=== PATIENT | female | born 1985 | race Caucasian/White ===

== ENCOUNTER 2018-08-08 15:09 | Emergency (ER) | payer OTHER ==
[2018-08-08 15:13] VITALS: BP 127/56; PULSE 84; TEMP 98.2; BMI 32.3
--- NOTE | 2018-08-08 15:54 | PDOC ---
History of Present Illness - General Chief Complaint: Respiratory Stated Complaint: FLU SYMPTOMS Time Seen by Provider: 08/08/18 15:37 History Source: Patient, [employer]iance Coordinator Used (#[id number]) Exam Limitations: Clinical Condition - History of Present Illness Initial Comments: 08/08/18 17:11 Patient with no sig PMhx present with complains of 1 month h/o persistent cough with yellow sputum, nasal congestion, runny nose and intermittent chest tightness with tactile fevers. Denies sore throat, N/V, malaise, abd pains. Denies any other symptoms Timing/Duration: other (1 month) Past History - Past Medical History Allergies/Adverse Reactions: Allergies Allergy/AdvReac Type Severity Reaction Status Date / Time No Known Allergies Allergy Verified 08/08/18 15:13 Home Medications: Ambulatory Orders Benzonatate [Tessalon Pearls -] 100 mg PO TID PRN #21 capsule 08/08/18 Ipratropium [place] 2 spray NS BID PRN #1 spray 08/08/18 Loratadine 10 mg PO DAILY #10 capsule 08/08/18 Methylprednisolone [Medrol Dose Christiano] 4 mg PO ASDIR #21 tablet 08/08/18 COPD: No - Suicide/Smoking/Psychosocial Hx Smoking History: Never smoked Review of Systems - Review of Systems Able to Perform ROS?: Yes Is the patient limited Czech proficient: No Constitutional: Yes: Chills, Fever (tactile fever) HEENTM: Yes: Symptoms Reported, See HPI, Nose Congestion. No: Eye Pain, Blurred Vision, Tearing, Recent change in vision, Double Vision, Cataracts, Ear Pain, Ocular Prothesis, Ear Discharge, Nose Pain, Tinnitus, Nose Bleeding, Hearing Loss, Throat Pain, Throat Swelling, Mouth Pain, Dental Problems, Difficulty Swallowing, Mouth Swelling, Other Respiratory: Yes: Symptoms reported, See HPI, Cough. No: Orthopnea, Shortness of Breath, SOB with Exertion, SOB at Rest, Stridor, Wheezing, Productive cough, Hemoptysis, Other Cardiac (ROS): No: Symptoms Reported, See HPI, Chest Pain, Edema, Irregular Heart Rate, Lightheadedness, Palpitations, Syncope, Chest Tightness, Other ABD/GI: No: Constipated, Diarrhea, Nausea, Vomiting All Other Systems: Reviewed and Negative *Physical Exam - Vital Signs Last Vital Signs Temp Pulse Resp BP Pulse Ox 98.2 F 84 18 127/56 L 99 08/08/18 15:10 08/08/18 15:10 08/08/18 15:10 08/08/18 15:10 08/08/18 15:10 - Physical Exam General Appearance: Yes: Nourished, Appropriately Dressed. No: Apparent Distress HEENT: positive: EOMI, ROCIO, Normal ENT Inspection, Normal Voice, TMs Normal, Pharynx Normal. negative: Symmetrical Neck: positive: Supple Respiratory/Chest: positive: Lungs Clear, Normal Breath Sounds. negative: Chest Tender, Respiratory Distress, Accessory Muscle Use Cardiovascular: positive: Regular Rhythm, Regular Rate, S1, S2 Gastrointestinal/Abdominal: positive: Flat, Soft. negative: Tender, Organomegaly Musculoskeletal: positive: Normal Inspection Extremity: positive: Normal Capillary Refill, Normal Inspection Integumentary: positive: Normal Color Neurologic: positive: Fully Oriented, Alert Moderate Sedation - Procedure Monitoring Vital Signs: Procedure Monitoring Vital Signs Temperature 98.2 F 08/08/18 15:10 Pulse Rate 84 08/08/18 15:10 Respiratory Rate 18 08/08/18 15:10 Blood Pressure 127/56 L 08/08/18 15:10 O2 Sat by Pulse Oximetry (%) 99 08/08/18 15:10 Medical Decision Making - Medical Decision Making 08/08/18 17:13 Patient with no sig PMhx present with complains of 1 month h/o persistent cough with yellow sputum, nasal congestion, runny nose and intermittent chest tightness with tactile fevers. Denies sore throat, N/V, malaise, abd pains. Denies any other symptoms Clinical exam unremarkable except nasal congestion. lungs CTAB. normal cardio exam. Chest x-rays shows no acute infiltrate. Patient stable for discharge for outpatient treatment for URI with medrol pack, tessalon perles for cough, anti- histamine and nasal spray for congestion *DC/Admit/Observation/Transfer Diagnosis at time of Disposition: Cough URI (upper respiratory infection) Qualifiers: URI type: unspecified URI Qualified Code(s): J06.9 - Acute upper respiratory infection, unspecified - Discharge Dispostion Disposition: HOME Condition at time of disposition: Stable Decision to Admit order: No - Prescriptions Prescriptions: Benzonatate [Tessalon Pearls -] 100 mg PO TID PRN #21 capsule PRN Reason: Cough Ipratropium [place] 2 spray NS BID PRN #1 spray PRN Reason: nasal congestion Loratadine 10 mg PO DAILY #10 capsule Methylprednisolone [Medrol Dose Christiano] 4 mg PO ASDIR #21 tablet - Referrals Referrals: Jatin Dobson MD [Staff Physician] - - Patient Instructions Printed Discharge Instructions: DI for Acute Bronchitis Additional Instructions: Your chest x-ray shows no pneumonia. Take medications as prescribed. increase fluid intake. follow-up with PCP - Post Discharge Activity
== END 2018-08-08 17:23 | disposition home or self-care (01) ==
LOC: JERFT 15:09
DX: J06.9 Acute upper respiratory infection, unspecified (principal)
CPT/HCPCS: 71046-TC-FY; 84703; 99281-25

== ENCOUNTER 2018-10-09 16:48 | Emergency (ER) | payer OTHER ==
[2018-10-09 17:02] VITALS: TEMP 98.2; BMI 29.0
--- NOTE | 2018-10-09 17:37 | PDOC ---
History of Present Illness - General Chief Complaint: Nausea/Vomiting Stated Complaint: DIZZINESS/ DIARRHEA/VOMITING Time Seen by Provider: 10/09/18 17:16 History Source: Patient Exam Limitations: No Limitations - History of Present Illness Initial Comments: 33 yo F w no reported pmh presents with 3 days of nausea and vomting - NBNB. She says that today she has only experienced one episode of vomiting, but 3-4 yesterday. She states the day before she had too many vomiting episodes to count. She has also had 2/3 episodes of non-bloody - watery diarrhea yesterday. She endorses having a headache as well. She is sexually active with one male partner and she has an IUD in place which was placed 2 years prior. She also endorses intermittent leandra-umbilical abdominal pain which does not radiate in any direction. Denies dysuria, frequency, urgency. Denies recent travel. Denies rlq pain and denies back pain. Denies fevers, chills, or sweats. Does not take any medications. PCP: None PSH: 2 C-sections (6 and 2 years ago), teratoma removed. Allergies: NKA, NKDA Social Hx: Denies smoking, drinking, or other substance usage. Past History - Past Medical History Allergies/Adverse Reactions: Allergies Allergy/AdvReac Type Severity Reaction Status Date / Time No Known Allergies Allergy Verified 08/08/18 15:13 Home Medications: Ambulatory Orders Benzonatate [Tessalon Pearls -] 100 mg PO TID PRN #21 capsule 08/08/18 Ipratropium [place] 2 spray NS BID PRN #1 spray 08/08/18 Loratadine 10 mg PO DAILY #10 capsule 08/08/18 Methylprednisolone [Medrol Dose Christiano] 4 mg PO ASDIR #21 tablet 08/08/18 COPD: No - Immunization History Immunization Up to Date: Yes - Suicide/Smoking/Psychosocial Hx Smoking History: Current every day smoker Information on smoking cessation initiated: No Hx Alcohol Use: No Drug/Substance Use Hx: No Review of Systems - Review of Systems Able to Perform ROS?: Yes Comments:: CONSTITUTIONAL: Present: Chills Absent: fever, no fatigue EYES: Absent: visual changes ENT: Absent: ear pain, no sore throat CARDIOVASCULAR: Absent: chest pain, no palpitations RESPIRATORY: Absent: cough, no SOB GI: Present: Abdominal pain, nausea, vomiting, diarrhea Absent: no constipation GENITOURINARY: Absent: dysuria, no frequency, no hematuria MUSKULOSKELETAL: Absent: back pain, no arthralgia, no myalgia SKIN: Absent: rash NEURO: Present: headache *Physical Exam - Vital Signs Last Vital Signs Temp Pulse Resp BP Pulse Ox 98.2 F 60 17 102/63 99 10/09/18 17:00 10/09/18 17:00 10/09/18 17:00 10/09/18 17:00 10/09/18 17:00 - Physical Exam Comments: GENERAL: Well-appearing, well-nourished. No apparent distress. HEENT: Normocephalic, atraumatic. PERRL, EOM intact. CARDIOVASCULAR: Normal S1, S2. Regular rate and rhythm. PULMONARY: No evidence of respiratory distress. Lungs clear to auscultation bilaterally. No wheezing, rales or rhonchi. ABDOMEN: Mild TTP in the leandra-umbilical region. Soft, non-distended. EXTREMITIES: Normal ROM in all four extremities. No gross deformities. SKIN: Warm, dry. No rash NEUROLOGICAL: No focal neurological deficits. ED Treatment Course - LABORATORY CBC & Chemistry Diagram: 10/09/18 17:53 10/09/18 17:53 Medical Decision Making - Medical Decision Making 33 yo F w no reported pmh presents with 3 days of nausea and vomting - NBNB. She says that today she has only experienced one episode of vomiting, but 3-4 yesterday. She states the day before she had too many vomiting episodes to count. She has also had 2/3 episodes of non-bloody - watery diarrhea yesterday. She endorses having a headache as well. She is sexually active with one male partner and she has an IUD in place which was placed 2 years prior. She also endorses intermittent leandra-umbilical abdominal pain which does not radiate in any direction. VS: WNL DDx IBNLT: gastroenteritis/food poisoning, , electrolyte/metabolic disturbance, SBO, appendicitis Plan: Labs, Urine, EKG, GI cocktail, zofran, IV hydration, re-assess. - Patient is very well appearing, walking around the ED without difficulty and appears well enough to leave the ED after workup. Patient Signed out to Dr. Rosas for further care and disposition *DC/Admit/Observation/Transfer Diagnosis at time of Disposition: Abdominal pain - Referrals - Patient Instructions - Post Discharge Activity
[2018-10-09] MEDS ORDERED: ACETAMINOPHEN 1000 MG/100 ML VIAL (NON FORMULARY) IVPB ONE (17:39)
[2018-10-09] MEDS ORDERED: FAMOTIDINE 20 MG/50 ML IVPB 20 MG/50 ML MG IVPB ONE ×2 (17:39→17:55)
[2018-10-09] MEDS ORDERED: ONDANSETRON 4 MG/2 ML VIAL IVPUSH ONE (17:39)
[2018-10-09] MEDS ORDERED: SODIUM CHLORIDE 0.9% 500 ML INFUS.BAG IV ONE (17:39)
[2018-10-09] MEDS ORDERED: MAG HYDROX/AL HYDROX/SIMETH -MYLANTA- ORAL SUSPENSION PO ONE (17:41)
[2018-10-09] MEDS ORDERED: ONDANSETRON 4 MG/2 ML VIAL ONE (17:54)
[2018-10-09] MEDS ORDERED: MAG HYDROX/AL HYDROX/SIMETH 30 ML UNIT-DOSE CUP ONE (17:54)
[2018-10-09] MEDS ORDERED: ACETAMINOPHEN INJECTION 100 ML IVPB ONE (17:54)
[2018-10-09 18:05] LABS: BASO % 0.3 % (0-2.0); EOS % 2.2 % (0-4.5); HEMATOCRIT 34.5 % (32.4-45.2); HEMOGLOBIN 10.9 GM/dL (10.7-15.3); LYMPH % 26.3 % (8-40); MCHC 31.6 g/dl (32.0-36.0); MEAN CELL VOLUME 78.9 fl (80-96); MEAN PLT VOLUME 7.9 fl (7.5-11.1); NEUT % 59.2 % (42.8-82.8); PLATELET COUNT 294 K/MM3 (134-434); RBC 4.37 M/mm3 (3.60-5.2); RDW 15.9 % (11.6-15.6); WHITE BLOOD COUNT 5.5 K/mm3 (4.0-10.0)
[2018-10-09 18:26] LABS: ALBUMIN 3.8 g/dl (3.4-5.0); ALK PHOS 64 U/L (45-117); BILIRUBIN,TOTAL 0.1 mg/dL (0.2-1); BLOOD UREA NITROGEN 15 mg/dL (7-18); CALCIUM 9.1 mg/dL (8.5-10.1); CO2 29 mmol/L (21-32); CREATININE 0.5 mg/dL (0.55-1.3); GLUCOSE,RANDOM 83 mg/dL (74-106); LIPASE 177 U/L (73-393); SGOT/AST 11 U/L (15-37); SGPT/ALT 16 U/L (13-61); TOT PROT 7.4 g/dl (6.4-8.2)
--- NOTE | 2018-10-09 18:48 | PDOC ---
Attending Attestation - Resident Resident Name: Kobe Shore - ED Attending Attestation I have performed the following: I have examined & evaluated the patient, The case was reviewed & discussed with the resident, I agree w/resident's findings & plan, Exceptions are as noted <Nicki Johnson - Last Filed: 10/09/18 18:48> - HPI HPI: The patient is a 33 year old female, with no significant PMH, who presents to the emergency department today complaining of nausea, vomit, and diarrhea for 3 days. Patient notes that 3 days ago, she had multiple episodes on NBNB vomit, too many of which she could keep count. Yesterday, patient had four episodes of NBNB vomit and 5 episodes of watery diarrhea (denies blood in stool). She endorses only one episode of NBNB vomit today. Patient reports associated headache and pain around her umbilicus. She denies sick contacts at home. The patient denies chest pain, shortness of breath, headache and dizziness. Denies fever, chills, nausea, vomit, diarrhea and constipation. Denies dysuria, frequency, urgency and hematuria. Denies raw fish or raw meat consumption. Allergies: NKA Past surgical history: 2 C-sections, and teratoma resection Social history: None reported PCP: Does not have one 10/09/18 18:49 - Physicial Exam PE: GENERAL: The patient is in no acute distress. HEAD: Normal with no signs of trauma. EYES: PERRLA, EOMI, sclera anicteric, conjunctiva clear. ENT: Ears normal, nares patent, oropharynx clear without exudates. Moist mucous membranes. NECK: Normal range of motion, supple without lymphadenopathy, JVD, or masses. LUNGS: Breath sounds equal, clear to auscultation bilaterally. No wheezes, and no crackles. HEART:Regular rate and rhythm, normal S1 and S2 without murmur, rub or gallop. ABDOMEN: +Periumbilical tenderness to palpation. Soft, normoactive bowel sounds. No guarding, no rebound. No masses palpable. EXTREMITIES: Normal range of motion, no edema. No clubbing or cyanosis. No erythema, or tenderness. NEUROLOGICAL: Cranial nerves II through XII grossly intact. Normal speech. No focal neurological deficits. MUSCULOSKELETAL: Back non-tender to palpation, no CVA tenderness SKIN: Warm, Dry, normal turgor, no rashes or lesions noted. 10/09/18 18:49 - Medical Decision Making EXAM: Abdomen/T/Pelvis CT with contrast Impression: No evidence of GI or tract obstruction or inflammatory change. Terminal ileum and appendix within normal limits. IUD present within the uterine fundus. 1.6 cm cyst left ovary. Right ovary not visualized separate from adjacent bowel loops. Reported by: Brennan Gregory MD 10/09/2018 21:48 Documentation prepared by SHANTELL Rouse, acting as medical communication specialist for Nicki Johnson MD. 10/09/18 21:52 <Zulma Wells - Last Filed: 10/09/18 21:53>
[2018-10-09 19:07] LABS: EPI CELLS 2.1 /HPF (0-5); URINE APPEARANCE CLEAR; URINE BACTERIA 8.5 /hpf (NEGATIVE); URINE BILIRUBIN NEGATIVE (NEGATIVE); URINE CASTS 1 /hpf (0-8); URINE COLOR YELLOW; URINE GLUCOSE (UA) NEGATIVE (NEGATIVE); URINE KETONE NEGATIVE (NEGATIVE); URINE LEUK ESTERASE TRACE (NEGATIVE); URINE NITRITE NEGATIVE (NEGATIVE); URINE PROTEIN NEGATIVE (NEGATIVE); URINE RBC 3 /hpf (0-4); URINE WBC 3 /hpf (0-5)
[2018-10-09 19:24] LABS: ANION GAP 7 MMOL/L (8-16); CHLORIDE 106 mmol/L (98-107); POTASSIUM 3.7 mmol/L (3.5-5.1); SODIUM 142 mmol/L (136-145)
--- NOTE | 2018-10-09 19:38 | PDOC ---
*Physical Exam - Vital Signs Last Vital Signs Temp Pulse Resp BP Pulse Ox 98.2 F 60 17 102/63 99 10/09/18 17:00 10/09/18 17:00 10/09/18 17:00 10/09/18 17:00 10/09/18 17:00 ED Treatment Course - LABORATORY CBC & Chemistry Diagram: 10/09/18 17:53 10/09/18 17:53 - ADDITIONAL ORDERS Additional order review: Laboratory Results 10/09/18 10/09/18 10/09/18 18:55 18:55 17:53 Sodium 142 Potassium 3.7 Chloride 106 Carbon Dioxide 29 Anion Gap 7 L BUN 15 Creatinine 0.5 L Creat Clearance w eGFR 142.98 Random Glucose 83 Calcium 9.1 Total Bilirubin 0.1 L AST 11 L ALT 16 Alkaline Phosphatase 64 Total Protein 7.4 Albumin 3.8 Lipase 177 Urine Color Yellow Urine Appearance Clear Urine pH 6.0 Ur Specific [place] 1.026 Urine Protein Negative Urine Glucose (UA) Negative Urine Ketones Negative Urine Blood Negative Urine Nitrite Negative Urine Bilirubin Negative Urine Urobilinogen 1.0 Ur Leukocyte Esterase Trace Urine WBC (Auto) 3 Urine RBC (Auto) 3 Urine Casts (Auto) 1 U Epithel Cells (Auto) 2.1 Urine Bacteria (Auto) 8.5 Urine HCG, Qual Negative 10/09/18 17:53 RBC 4.37 MCV 78.9 L MCHC 31.6 L RDW 15.9 H MPV 7.9 Neutrophils % 59.2 Lymphocytes % 26.3 Monocytes % 12.0 H Eosinophils % 2.2 Basophils % 0.3 - Medications Given in the ED: ED Medications Discontinued Medications Generic Name Dose Route Start Last Admin Trade Name Boni PRN Reason Stop Dose Admin Acetaminophen 1,000 mg 10/09/18 17:39 10/09/18 18:13 Ofirmev Injection - IVPB 10/09/18 17:40 1,000 mg ONCE ONE Administration Al Hydroxide/Mg Hydroxide 30 ml 10/09/18 17:41 10/09/18 18:13 Mylanta Suspension - PO 10/09/18 17:42 30 ml ONCE ONE Administration Famotidine/Sodium Chloride 20 mg in 50 mls @ 100 mls/hr 10/09/18 17:39 18:13 Pepcid 20 Mg Premixed Ivpb - IVPB 10/09/18 18:08 100 mls/hr ONCE ONE Administration Ondansetron HCl 4 mg 10/09/18 17:39 10/09/18 18:13 Zofran Injection IVPUSH 10/09/18 17:40 4 mg ONCE ONE Administration Sodium Chloride 1,000 ml 10/09/18 17:39 10/09/18 18:13 Normal Saline - IV 10/09/18 17:40 1,000 ml ONCE ONE Administration Medical Decision Making - Medical Decision Making 10/09/18 19:37 Pt came with abd pain. Labs normal; she was treated with IV tylenol. Still with periumilical pain. We will scan her because the periumbilical pain is still present. No lower quadrant pain and no rebound and guarding. Pt has significant central abdominal pain. No periumbilical hernia appreciated. Pt has a mis abd scar caudal to the umbilicus. Hx of c section and teratoma removal. 10/09/18 21:54 Patient Name: SHONDA DURAN THIS IS A PRELIMINARY REPORT FROM [facility] DATE OF SERVICE: 2018-10-09 20:21:55 IMAGES: [id number] EXAM: ABDOMEN \T\ PELVIS CT WITH CONTR History: 33-year-old female with abdominal pain Comparison: None Procedure: CT scan abdomen and pelvis, dated October 09, 2018 . Axial images obtained followed by coronal and sagittal reconstructions. Intravenous contrast utilized, 100 mL Omnipaque . Findings: The liver, spleen, pancreas, adrenal glands and kidneys unremarkable. Exophytic cyst posterior cortex upper pole right kidney. Gallbladder gallbladder fossa normal in appearance. No ureteral or bladder abnormalities noted. Rectum and perirectal space unremarkable. Terminal ileum and appendix within normal limits. No large or small bowel inflammatory changes evident. The aorta/branch vessel/IVC unremarkable. Small umbilical hernia, fat- containing only. Uterus is anteverted in position. 1.6 cm cyst left ovary. Right ovary not clearly visualized from adjacent bowel loops. IUD noted within the uterine fundus. 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 No erosive changes to the sacral iliac joints identified. Impression: 1. No evidence of GI or tract obstruction or inflammatory change. Terminal ileum and appendix within normal limits. 2. IUD present within the uterine fundus. 1.6 cm cyst left ovary. Right ovary not visualized separate from adjacent bowel loops. 10/09/18 22:48 Pt has abd pain, NOS. Likely secondary to adhesions and gas pain. Pt reassured stable for discharge. *DC/Admit/Observation/Transfer Diagnosis at time of Disposition: Renal cyst, Ovarian cyst Abdominal pain Qualifiers: Abdominal location: unspecified location Qualified Code(s): R10.9 - Unspecified abdominal pain - Discharge Dispostion Disposition: HOME Condition at time of disposition: Stable - Prescriptions Prescriptions: Metoclopramide HCl [Reglan -] 10 mg PO DAILY #7 tablet - Referrals Referrals: [facility] [place] [facility] [place] [Provider Group] - Patient Instructions Additional Instructions: You were seen in the ER for abdominal pain, nausea, and vomiting. We did lab work on your blood and urine and found no abnormalities. We took an electrocardiogram which showed no concerning findings on your heart activity. We also did some imaging studies and we did not see any new abnormalities that could explain your symptoms, but we found an incidental right kidney cyst and a small ovarian cyst. (Please follow up with your regular doctor regarding these findings, which are not emergencies). After our assessment, we do not believe you are having a medical emergency at this time, and we believe you are safe to go home. Please take Reglan for the headache and abdominal discomfort (we are sending a prescription). Please also purchase and take omeprazole 20 mg once a day, from the pharmacy. We are giving you referral information for a primary care doctor in case you need a new one. Call their clinic [facility], tell them you were seen in the ER, and tell them you need an appointment. Please come back to the ER at any time, 24 hours a day, for any new or worsening symptoms, like worsened abdominal pain, fever, inability to have a bowel movement or pass gas, chest pain, palpitations, or other symptoms. If you are having severe or life threatening symptoms, or symptoms that make it unsafe to drive or have someone drive you, please call 911. - Post Discharge Activity
--- NOTE | 2018-10-09 20:47 | PDOC ---
*Physical Exam - Vital Signs Last Vital Signs Temp Pulse Resp BP Pulse Ox 98.2 F 60 20 105/69 100 10/09/18 17:00 10/09/18 19:57 10/09/18 19:57 10/09/18 19:57 10/09/18 19:57 - Physical Exam Comments: 10/09/18 19:15 Patient's care was endorsed to me by Dr. Shore at the end of his shift. Patient is a 33 YOF with h/o abdominal surgery, who p/w nausea, NBNB vomiting, and periumbilical>epigastric abdominal pain x2 days worsening now. Was given GI medications and Tylenol, still has some abdominal pain, no longer nauseated/ vomiting. Awaiting remaining labs currently. Will re-assess and decide whether or not to CT. ED Treatment Course - LABORATORY CBC & Chemistry Diagram: 10/09/18 17:53 10/09/18 17:53 - ADDITIONAL ORDERS Additional order review: Laboratory Results 10/09/18 10/09/18 10/09/18 18:55 18:55 17:53 Sodium 142 Potassium 3.7 Chloride 106 Carbon Dioxide 29 Anion Gap 7 L BUN 15 Creatinine 0.5 L Creat Clearance w eGFR 142.98 Random Glucose 83 Calcium 9.1 Total Bilirubin 0.1 L AST 11 L ALT 16 Alkaline Phosphatase 64 Total Protein 7.4 Albumin 3.8 Lipase 177 Urine Color Yellow Urine Appearance Clear Urine pH 6.0 Ur Specific [place] 1.026 Urine Protein Negative Urine Glucose (UA) Negative Urine Ketones Negative Urine Blood Negative Urine Nitrite Negative Urine Bilirubin Negative Urine Urobilinogen 1.0 Ur Leukocyte Esterase Trace Urine WBC (Auto) 3 Urine RBC (Auto) 3 Urine Casts (Auto) 1 U Epithel Cells (Auto) 2.1 Urine Bacteria (Auto) 8.5 Urine HCG, Qual Negative 10/09/18 17:53 RBC 4.37 MCV 78.9 L MCHC 31.6 L RDW 15.9 H MPV 7.9 Neutrophils % 59.2 Lymphocytes % 26.3 Monocytes % 12.0 H Eosinophils % 2.2 Basophils % 0.3 - RADIOLOGY Radiology Studies Ordered: Category Date Time Status ABDOMEN & PELVIS CT WITH CONTR [CT] Stat CT Scan 10/09/18 19:20 Ordered - Medications Given in the ED: ED Medications Discontinued Medications Generic Name Dose Route Start Last Admin Trade Name Freq PRN Reason Stop Dose Admin Acetaminophen 1,000 mg 10/09/18 17:39 10/09/18 18:13 Ofirmev Injection - IVPB 10/09/18 17:40 1,000 mg ONCE ONE Administration Al Hydroxide/Mg Hydroxide 30 ml 10/09/18 17:41 10/09/18 18:13 Mylanta Suspension - PO 10/09/18 17:42 30 ml ONCE ONE Administration Famotidine/Sodium Chloride 20 mg in 50 mls @ 100 mls/hr 10/09/18 17:39 18:13 Pepcid 20 Mg Premixed Ivpb - IVPB 10/09/18 18:08 100 mls/hr ONCE ONE Administration Ondansetron HCl 4 mg 10/09/18 17:39 10/09/18 18:13 Zofran Injection IVPUSH 10/09/18 17:40 4 mg ONCE ONE Administration Sodium Chloride 1,000 ml 10/09/18 17:39 10/09/18 18:13 Normal Saline - IV 10/09/18 17:40 1,000 ml ONCE ONE Administration Medical Decision Making - Medical Decision Making 10/09/18 20:00 The patient remained tender to the periumbilical area>epigastrium, moderate, after medications. After shared decision making the decision was made to order the CT A/P with IV contrast. Order placed, patient wheeled to CT scan, having scan now. *DC/Admit/Observation/Transfer Diagnosis at time of Disposition: Renal cyst Abdominal pain Qualifiers: Abdominal location: unspecified location Qualified Code(s): R10.9 - Unspecified abdominal pain Ovarian cyst Qualifiers: Laterality: unspecified laterality Qualified Code(s): N83.209 - Unspecified ovarian cyst, unspecified side - Discharge Dispostion Disposition: HOME Condition at time of disposition: Stable Decision to Admit order: No - Prescriptions Prescriptions: Metoclopramide HCl [Reglan -] 10 mg PO DAILY #7 tablet - Referrals Referrals: [facility] [place] [facility] [place] [Provider Group] - Patient Instructions Additional Instructions: You were seen in the ER for abdominal pain, nausea, and vomiting. We did lab work on your blood and urine and found no abnormalities. We took an electrocardiogram which showed no concerning findings on your heart activity. We also did some imaging studies and we did not see any new abnormalities that could explain your symptoms, but we found an incidental right kidney cyst and a small ovarian cyst. (Please follow up with your regular doctor regarding these findings, which are not emergencies). After our assessment, we do not believe you are having a medical emergency at this time, and we believe you are safe to go home. Please take Reglan for the headache and abdominal discomfort (we are sending a prescription). Please also purchase and take omeprazole 20 mg once a day, from the pharmacy. We are giving you referral information for a primary care doctor in case you need a new one. Call their clinic [facility], tell them you were seen in the ER, and tell them you need an appointment. Please come back to the ER at any time, 24 hours a day, for any new or worsening symptoms, like worsened abdominal pain, fever, inability to have a bowel movement or pass gas, chest pain, palpitations, or other symptoms. If you are having severe or life threatening symptoms, or symptoms that make it unsafe to drive or have someone drive you, please call 911. - Post Discharge Activity
[2018-10-09 22:13] VITALS: BP 105/70; PULSE 58
--- NOTE | 2018-10-10 18:03 | EKG ---
Test Reason : Blood Pressure : / mmHG Vent. Rate : 052 BPM Atrial Rate : 052 BPM P-R Int : 164 ms QRS Dur : 082 ms QT Int : 434 ms P-R-T Axes : 055 075 045 degrees QTc Int : 403 ms SINUS BRADYCARDIA POSSIBLE LEFT ATRIAL ENLARGEMENT BORDERLINE ECG NO PREVIOUS ECGS AVAILABLE Confirmed by SULEMAN ORDAZ, CAMILLE ([id number]) on 10/10/2018 6:03:34 PM Referred By: Confirmed By:CAMILLE SHELL MD
== END 2018-10-09 22:13 | disposition home or self-care (01) ==
LOC: JER 16:48
PROC: 3E033GC Introduction of Other Therapeutic Substance into Peripheral Vein, Percutaneous Approach (ICD-10-PCS; principal; 2018-10-09)
PROC: 3E033NZ Introduction of Analgesics, Hypnotics, Sedatives into Peripheral Vein, Percutaneous Approach (ICD-10-PCS; 2018-10-09)
PROC: 3E033GC Introduction of Other Therapeutic Substance into Peripheral Vein, Percutaneous Approach (ICD-10-PCS; 2018-10-09)
DX: N83.202 Unspecified ovarian cyst, left side (principal); N28.1 Cyst of kidney, acquired; R10.9 Unspecified abdominal pain
CPT/HCPCS: 36415; 74177-TC; 80053; 81003; 83690; 84703; 85025; 87086; 93005; 93010; 96365; 96375; 99283-25; J0131

== ENCOUNTER 2019-08-06 21:26 | Emergency (ER) | payer OTHER ==
[2019-08-06 21:42] VITALS: BP 109/86; PULSE 77; TEMP 98.6; BMI 28.1
--- NOTE | 2019-08-06 22:11 | PDOC ---
History of Present Illness - General Chief Complaint: Chest Pain Stated Complaint: CHEST PAIN Time Seen by Provider: 08/06/19 22:08 History Source: Patient Exam Limitations: No Limitations - History of Present Illness Initial Comments: 08/06/19 22:35 34y previously healthy F presenting w 2mo yellow productive cough, chest pain/ SOB worse w coughing, and 1d subjective fevers, julio frontal headache, poor appetite, lightheadedness. No PCP. Took cough medication yesterday, nothing today. Denies nausea/vomiting, ABD pain, diarrhea, urinary changes. Past History - Past Medical History Allergies/Adverse Reactions: Allergies Allergy/AdvReac Type Severity Reaction Status Date / Time No Known Allergies Allergy Verified 08/08/18 15:13 Home Medications: Ambulatory Orders NK [No Known Home Medication] 08/06/19 COPD: No - Immunization History Immunization Up to Date: Yes - Psycho Social/Smoking Cessation Hx Smoking History: Never smoked Hx Alcohol Use: No Drug/Substance Use Hx: No Review of Systems - Review of Systems Constitutional: Yes: Chills, Fever HEENTM: No: Eye Pain, Nose Pain, Nose Congestion, Throat Pain Respiratory: Yes: Cough, Shortness of Breath Cardiac (ROS): Yes: Chest Pain. No: Palpitations ABD/GI: No: Constipated, Diarrhea, Nausea, Vomiting : No: Burning, Dysuria, Hematuria Musculoskeletal: No: Back Pain, Joint Pain Integumentary: No: Bruising, Flushing Neurological: Yes: Headache. No: Seizure Psychiatric: No: Anxiety, Depression Endocrine: No: Excessive Sweating, Intolerance to Cold, Intolerance to Heat Hematologic/Lymphatic: No: Anemia, Blood Clots *Physical Exam - Vital Signs Last Vital Signs Temp Pulse Resp BP Pulse Ox 98.6 F 77 19 109/86 99 08/06/19 21:39 08/06/19 21:39 08/06/19 21:39 08/06/19 21:39 08/06/19 21:39 - Physical Exam General Appearance: Yes: Nourished, Appropriately Dressed, Mild Distress HEENT: positive: EOMI, ROCIO, Normal Voice, Hearing Grossly Normal. negative: Scleral Icterus (R), Scleral Icterus (L) Respiratory/Chest: positive: Chest Tender (midsternal), Lungs Clear, Normal Breath Sounds, Decreased Breath Sounds. negative: Respiratory Distress, Crackles, Rales, Rhonchi, Stridor, Wheezing Cardiovascular: positive: Regular Rhythm, Regular Rate, S1, S2. negative: Murmur Gastrointestinal/Abdominal: positive: Normal Bowel Sounds, Flat, Soft. negative : Tender, Organomegaly Integumentary: positive: Normal Color. negative: Dry, Bruising Neurologic: positive: records management specialist II-XII NML intact, Fully Oriented, Alert, Normal Mood/ Affect, Normal Response, Motor Strength 5/5, Responsive. negative: Sensory Deficit, Confused, Disoriented Heart Score/ECG Review - History History: Slightly suspicious - Electrocardiogram EKG: Normal - Age Age: </= 45 - Risk Factors Based on the list above the patient has:: No risk factors known - Troponin Troponin: </= normal limit - Score Heart Score - Total: 0 ED Treatment Course - LABORATORY CBC & Chemistry Diagram: 08/06/19 22:53 08/06/19 22:53 - ADDITIONAL ORDERS Additional order review: Laboratory Results 08/06/19 22:53 Serum , Qual Negative 08/06/19 22:53 RBC 4.63 MCV 78.8 L MCHC 32.2 RDW 15.0 MPV 8.0 Neutrophils % 60.5 Lymphocytes % 23.7 Monocytes % 14.4 H Eosinophils % 0.8 Basophils % 0.6 - RADIOLOGY Radiology Studies Ordered: Category Date Time Status CHEST PA & LAT [RAD] Stat Radiology 08/06/19 22:32 Taken - Medications Given in the ED: ED Medications Discontinued Medications Generic Name Dose Route Start Last Admin Trade Name Warrenq PRN Reason Stop Dose Admin Acetaminophen 1,000 mg 08/06/19 22:33 08/06/19 23:11 Ofirmev Injection - IVPB 08/06/19 22:34 1,000 mg ONCE ONE Administration Albuterol/Ipratropium 1 amp 08/06/19 22:32 08/06/19 23:11 Duoneb - NEB 08/06/19 22:33 1 amp ONCE ONE Administration Guaifenesin 10 ml 08/06/19 22:43 08/06/19 23:11 Robitussin - PO 08/06/19 22:44 10 ml ONCE ONE Administration Sodium Chloride 1,000 ml 08/06/19 22:33 08/06/19 23:11 Normal Saline - IV 08/06/19 22:34 1,000 ml ONCE ONE Administration Medical Decision Making - Medical Decision Making 08/06/19 22:12 EKG NSR, flipped T-wave V2, unchanged TWI V1, no other ST changes, HR 66, QTc 402 CXR clear lung torres --- 34y previously healthy F presenting w 2mo yellow productive cough, chest pain/ SOB worse w coughing, and 1d subjective fevers and lightheadedness d/t costochondritis (chest tenderness w palpation) and bronchitis. Low concern for ACS (no cardiac risk factors) vs PNA (clear lungs CXR) vs (neg) vs influenza (neg) Given 1L NS, tylenol, guaifenesin, albuterol Anticipate DC home w tessalon pearls and PCP f/u - pending CMP Signed out to night team Discharge - Discharge Information Problems reviewed: Yes Clinical Impression/Diagnosis: Bronchitis, Costochondritis Condition: Good Disposition: HOME - Admission No - Follow up/Referral - Patient Discharge Instructions Patient Printed Discharge Instructions: DI for Acute Bronchitis Additional Instructions: Take ibuprofen if you have chest pain. Take the prescribed Tessalon pearls for your cough Follow up with your primary care doctor - Post Discharge Activity
--- NOTE | 2019-08-06 22:20 | PDOC ---
Attending Attestation - Resident Resident Name: BrnadanEric - ED Attending Attestation I have performed the following: I have examined & evaluated the patient, The case was reviewed & discussed with the resident, I agree w/resident's findings & plan - HPI HPI: 08/07/19 00:16 Pt comes with cough and muscular chest pain. She states that she has a bronchitis. 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 She has children, but they are not ill. Pt has no pets and no allergies. She has no hx of asthma. SHe has no fevers and chills, just a lot of cough and sputum. - Physicial Exam PE: 08/07/19 00:17 Agree with resident exam. Pt has no fevers She has clear breath sounds She has no abd pain and no flank pain and no rashes SHe has no pitting edema, and she has no neuro deficits no rashes - Medical Decision Making 08/07/19 00:07 labs are normal; flu negative 08/07/19 00:07 EKG NSR; pt has microcytic anemia; she needs to change her diet. 08/07/19 00:15 Pt has an atypical pneumonia; she will be treated with a zpak. She is stable for discharge home. 08/07/19 00:18 Home with zpak. Pt is not a smoker and she has no exposure ot 2nd hand smoke either Heart Score/ECG Review - ECG Intrepretation Rhythm: Regular Rhythm - [place]: Normal - P and SD Delta Wave(s) Present: No WPW: No - QRS Poor R Wave Progression: No Q Wave Present: No - ST and T Early Repolarization: No Non Specific ST-T Wave changes: No - ECG Impressions Normal ECG: Yes Non-specific ST Elevation: No Ischemic Changes: No Bradycardia: No Torsades lanette Pointes: No WPW: No
[2019-08-06] MEDS ORDERED: ALBUTEROL SO4 2.5/IPRATROPIUM 0.5 INH SOL 3 ML VIAL.NEB. NEB ONE ×2 (22:32→23:05)
[2019-08-06] MEDS ORDERED: ACETAMINOPHEN 1000 MG/100 ML VIAL (NON FORMULARY) IVPB ONE (22:33)
[2019-08-06] MEDS ORDERED: SODIUM CHLORIDE 0.9% 500 ML INFUS.BAG IV ONE (22:33)
[2019-08-06] MEDS ORDERED: guaiFENesin 200 MG/10 ML 10 ML UNIT-DOSE CUPS PO ONE (22:43)
[2019-08-06] MEDS ORDERED: ACETAMINOPHEN INJECTION 100 ML IVPB ONE (23:03)
[2019-08-06] MEDS ORDERED: guaiFENesin/CODEINE 5 ML UNIT-DOSE CUPS PO ONE (23:04)
[2019-08-06 23:14] LABS: BASO % 0.6 % (0-2.0); EOS % 0.8 % (0-4.5); HEMATOCRIT 36.5 % (32.4-45.2); HEMOGLOBIN 11.7 GM/dL (10.7-15.3); LYMPH % 23.7 % (8-40); MCH 25.4 pg (25.7-33.7); MCHC 32.2 g/dl (32.0-36.0); MEAN CELL VOLUME 78.8 fl (80-96); MONO % 14.4 % (3.8-10.2); NEUT % 60.5 % (42.8-82.8); PLATELET COUNT 277 K/MM3 (134-434); RBC 4.63 M/mm3 (3.60-5.2); WHITE BLOOD COUNT 5.1 K/mm3 (4.0-10.0)
--- NOTE | 2019-08-06 23:55 | PDOC ---
*Physical Exam - Vital Signs Last Vital Signs Temp Pulse Resp BP Pulse Ox 98.6 F 77 19 109/86 99 08/06/19 21:39 08/06/19 21:39 08/06/19 21:39 08/06/19 21:39 08/06/19 21:39 ED Treatment Course - LABORATORY CBC & Chemistry Diagram: 08/06/19 22:53 08/06/19 22:53 - ADDITIONAL ORDERS Additional order review: Laboratory Results 08/06/19 22:53 Serum , Qual Negative 08/06/19 22:53 RBC 4.63 MCV 78.8 L MCHC 32.2 RDW 15.0 MPV 8.0 Neutrophils % 60.5 Lymphocytes % 23.7 Monocytes % 14.4 H Eosinophils % 0.8 Basophils % 0.6 - Medications Given in the ED: ED Medications Discontinued Medications Generic Name Dose Route Start Last Admin Trade Name Warrenq PRN Reason Stop Dose Admin Acetaminophen 1,000 mg 08/06/19 22:33 08/06/19 23:11 Ofirmev Injection - IVPB 08/06/19 22:34 1,000 mg ONCE ONE Administration Albuterol/Ipratropium 1 amp 08/06/19 22:32 08/06/19 23:11 Duoneb - NEB 08/06/19 22:33 1 amp ONCE ONE Administration Guaifenesin 10 ml 08/06/19 22:43 08/06/19 23:11 Robitussin - PO 08/06/19 22:44 10 ml ONCE ONE Administration Sodium Chloride 1,000 ml 08/06/19 22:33 08/06/19 23:11 Normal Saline - IV 08/06/19 22:34 1,000 ml ONCE ONE Administration Medical Decision Making - Medical Decision Making 08/06/19 23:55 Patient signed out by Dr. Gipson ([email or web address]) 34 y/o female with 2 month h/o productive cough, pleuritic CP, and one day of subjective fever No leukocytosis Influenza negative Clinical suspicion for viral bronchitis vs. viral URI Awaiting CMP - likely disposition is d/c home with supportive care. 08/07/19 00:27 CMP unremarkable Patient to be discharged home with return precautions and supportive care. Clinical Impression: Viral URI vs. Viral Bronchitis I discussed the physical exam findings, ancillary test results and final diagnoses with the patient. I answered all of the patient's questions. The patient was satisfied with the care received and felt comfortable with the discharge plan and treatment plan. The patient will return to the Emergency Department with any new, persistent or worsening symptoms. 08/07/19 00:35 Patient left prior to signing papers - was seen and evaluated by attending physician and counseled on plan of care. Discharge - Discharge Information Problems reviewed: Yes Clinical Impression/Diagnosis: Bronchitis, Costochondritis Condition: Good Disposition: HOME - Additional Discharge Information Prescriptions: Azithromycin [Zithromax -] 250 mg PO DAILY #4 tablet Benzonatate [Tessalon Pearls -] 100 mg PO TID #21 capsule - Follow up/Referral - Patient Discharge Instructions Patient Printed Discharge Instructions: DI for Acute Bronchitis Additional Instructions: Take ibuprofen (400 mg every 6 hours) if you have chest pain. We have sent a cough medication to your pharmacy, please take as directed. Follow up with your primary care doctor. Your care is not complete until you are evaluated by your primary care doctor. Return to ED for any new/worsening/concerning symptoms. - Post Discharge Activity
[2019-08-06 23:59] LABS: ALBUMIN 3.6 g/dl (3.4-5.0); BILIRUBIN,TOTAL 0.2 mg/dL (0.2-1); BLOOD UREA NITROGEN 14.6 mg/dL (7-18); CALCIUM 9.2 mg/dL (8.5-10.1); CREATININE 0.8 mg/dL (0.55-1.3); POTASSIUM 3.9 mmol/L (3.5-5.1); TOT PROT 7.3 g/dl (6.4-8.2)
[2019-08-07] MEDS ORDERED: AZITHROMYCIN 250 MG TABLET PO ONE (00:14)
[2019-08-07] MEDS ORDERED: AZITHROMYCIN 250 MG TABLET ONE (00:29)
--- NOTE | 2019-08-07 14:07 | EKG ---
Test Reason : Blood Pressure : / mmHG Vent. Rate : 066 BPM Atrial Rate : 066 BPM P-R Int : 172 ms QRS Dur : 128 ms QT Int : 384 ms P-R-T Axes : 054 075 052 degrees QTc Int : 402 ms POOR DATA QUALITY, INTERPRETATION MAY BE ADVERSELY AFFECTED NORMAL SINUS RHYTHM LEFT ATRIAL ENLARGEMENT ABNORMAL ECG Confirmed by MD MULLER MOYSES ([id number]) on 08/07/2019 2:07:15 PM Referred By: Confirmed By:CHAPINCITO MULLER MD
== END 2019-08-07 00:35 | disposition home or self-care (01) ==
LOC: JER 21:26
PROC: 3E0F7GC Introduction of Other Therapeutic Substance into Respiratory Tract, Via Natural or Artificial Opening (ICD-10-PCS; principal; 2019-08-06)
PROC: 3E033NZ Introduction of Analgesics, Hypnotics, Sedatives into Peripheral Vein, Percutaneous Approach (ICD-10-PCS; 2019-08-06)
DX: J20.9 Acute bronchitis, unspecified (principal); M94.0 Chondrocostal junction syndrome [Tietze]
CPT/HCPCS: 36415; 71046-TC-FY; 80053; 84703; 85025; 87804; 93005; 93010; 94640; 96374; 99284-25; J0131